=== PATIENT | male | born 1960 | race Two or more races ===

== ENCOUNTER 2024-08-15 12:14 | Emergency (ER) | payer MEDICARE, OTHER ==
[~2024-08-15] VITALS: Ht 170.2 cm; Wt 70.4 kg
[2024-08-15 12:20] VITALS: BP 178/96; PULSE 71; RESP 18; O2SAT 95
== END 2024-08-15 20:34 | disposition home or self-care (01) ==
LOC: EDBD 12:14 → ER 12:14
DX: I16.0 Hypertensive urgency (principal); I11.0 Hypertensive heart disease with heart failure; I50.9 Heart failure, unspecified; R51.9 Headache, unspecified; Z86.73 Personal history of transient ischemic attack (TIA), and cerebral infarction without residual deficits